=== PATIENT | female | born 1975 | race Caucasian/White ===

== ENCOUNTER → 2020-08-22 17:23 | Outpatient (CLI) | payer OTHER, SELFPAY ==
--- NOTE | ~2020-08-22 | MM_ITS ---
EXAMINATION: MM screening [facility] BI w cash HISTORY: Screening mammogram TECHNIQUE: Craniocaudal and mediolateral oblique 3-D tomosynthesis images were obtained and synthetic 2-D images were generated. CAD analysis was submitted and interpreted. COMPARISON: 03/07/2018, 01/25/2017 BREAST PARENCHYMAL COMPOSITION: The breasts are heterogeneously dense, which may obscure small masses . FINDINGS: There is no evidence of suspicious mass, calcification, or architectural distortion to sugg est malignancy in either breast. There has been no suspicious interval change. IMPRESSION: 1. No mammographic evidence of malignancy. 2. Recommend routine screening mammography in one year. BI-RADS Category 1: Negative Reviewed, dictated and finalized at location A. ECTOR SHELLS
== END ==
PROVIDERS: Visit Provider Family Medicine
DX: Z12.31 Encounter for screening mammogram for malignant neoplasm of breast (principal)
CPT/HCPCS: 77063; 77067

== ENCOUNTER 2021-02-12 10:49 | Emergency (ER) | payer OTHER, SELFPAY ==
--- NOTE | ~2021-02-12 | XR_ITS ---
EXAMINATION: XR foot RT min 3V DATE: 02/12/2021 11:06 INDICATION: Right foot pain. TECHNIQUE: 4 views of right foot were obtained. COMPARISON: None. FINDINGS: There is mild hallux valgus. No fracture. There is mild osteoarthritis of first metatarsoph alangeal joint and some of the interphalangeal joints. There is an enthesophyte at plantar aspect of calcaneal tuberosity. IMPRESSION: 1. Mild hallux valgus. 2. Mild polyarticular osteoarthritis. Reviewed, dictated and finalized at location B.
--- NOTE | 2021-02-12 10:54 | ED.LOWEXIN ---
HPI - Extremity Injury (Lower) General Chief Complaint: Extremity Injury, Lower Stated Complaint: R FOOT PAIN Time Seen by Provider: 02/12/21 10:55 Source: patient and RN notes reviewed Mode of arrival: ambulatory Limitations: no limitations History of Present Illness HPI Narrative: 45-year-old female presents to the [facility] with complaints of lateral and dorsal right foot pain for a couple of weeks. Denies any pain currently. Pain is worse when she stands or walks a lot. When she is having pain she takes Advil or ibuprofen. Not sure of any injury. No direct trauma. No bruising or swelling noted. No wounds noted. Related Data Home Medications Medication Instructions Recorded Confirmed cholecalciferol (vitamin D3) 50 2,000 unit PO DAILY 06/01/19 07/24/20 mcg (2,000 unit) tablet Allergies Allergy/AdvReac Type Severity Reaction Status Date / Time oxycodone Allergy Unknown Nausea and Verified 07/24/20 14:08 Vomiting No Known Allergies Allergy Unverified 07/24/20 14:08 Review of Systems Review of Systems: All systems reviewed & are unremarkable except as noted in HPI and below Constitutional: Constitutional: Reports no additional constitutional complaints Eyes: Eyes: Reports no additional eye complaints Cardiovascular: Cardiovascular: Reports no additional cardiovascular complaints Respiratory: Respiratory: Reports no additional respiratory complaints Musculoskeletal: Musculoskeletal: Reports as per HPI (right lateral and dorsal foot) Integumentary/Breasts: Skin/Breast: Reports system reviewed and no additional complaints, except as docu, Denies pruritus and Denies rash Neurologic: Reports system reviewed and no additional complaints, except as documented, Denies headache(s), Denies focal weakness, Denies numbness and Denies weakness Psychiatric: Psychiatric: Reports no additional psychiatric complaints Allergic/Immunologic: Allergic/Immunologic: Reports no additional allergic/immunologic complaints [facility] Past Medical History Medical History (Updated 02/12/21 @ 11:18 by Liz Caal) Anxiety History of abdominal hernia History of abdominal hernia Hypothyroidism Vitamin D deficiency Family History Family History Mother Hypertension Family history of primary malignant neoplasm of liver Sibling Hypertension Family history of liver disease Father Malignant neoplasm of prostate Other Acute myocardial infarction Diabetes mellitus Social History Social History Smoking status: Former smoker Tobacco type: cigarettes Second hand tobacco smoke exposure: No Smoking end date: 06/28/10 Alcohol intake: never Substance use: never Substance use type: does not use Gender identity (if verbalized by the patient): Female Comments At the time of my signature, I reviewed and agree with the nursing past medical, surgical, social, and family history. There is no relevant family history pertinent to the patient complaint. Exam Const: General: healthy appearing, no acute distress and alert Nutritional Appearance: well nourished and obese Orientation/consciousness: patient oriented x3 Limitations: no limitations HENMT: Head: normal to inspection Neck: Neck: normal visual inspection, no lymphadenopathy and no meningeal signs Chest: Chest palpation & inspection: normal inspection of the chest Resp: Effort & Inspection: normal respiratory effort and no use of accessory muscles Auscultation: clear to auscultation bilaterally, no crackles, no rales, no rhonchi and no wheezes Cardio: Rate: regular rate Rhythm: regular rhythm : General: Yes no CVA tenderness Back/Spine/Pelvis: Back: no CVA tenderness Skin: General skin exam: normal color Rashes: no rashes Wounds: no wounds Neuro: General: patient oriented x3, moves all extremities, no meningeal signs and no focal mot
[2021-02-12 10:57] VITALS: BP 139/92; PULSE 68; RESP 16; TEMP 36.4; O2SAT 98
== END 2021-02-12 11:25 | disposition home or self-care (01) ==
PROVIDERS: Emergency Provider Nurse Practitioner; PCP Family Medicine
DX: M77.31 Calcaneal spur, right foot (principal); Z87.891 Personal history of nicotine dependence; F41.9 Anxiety disorder, unspecified; E03.9 Hypothyroidism, unspecified; E55.9 Vitamin D deficiency, unspecified
CPT/HCPCS: 73630; 99213; G0463

== ENCOUNTER 2021-10-25 17:47 | Emergency (ER) | payer OTHER, SELFPAY ==
--- NOTE | ~2021-10-25 | XR_ITS ---
EXAMINATION: XR chest 2V Exam Date/Time: 10/25/2021 19:40 CDT CLINICAL HISTORY: chest pain, BURNING FROM THROAT TO STOMACH Comparison: None available. RESULT: Lines, tubes, and devices: None. Lungs and pleura: Clear. Cardiomediastinal silhouette: Normal cardiomediastinal silhouette. Other: No acute osseous or upper abdominal finding. IMPRESSION: No acute cardiopulmonary process Reviewed, dictated and finalized at location K.
[2021-10-25 17:52] VITALS: BP 186/96; PULSE 69; RESP 20; TEMP 36.3; O2SAT 100
--- NOTE | 2021-10-25 19:31 | ECG_ITS ---
Measurements Intervals [place] Rate: 64 P: 64 [place]: 144 QRS: 33 QRSD: 72 T: 36 QT: 420 QTc: 433 Interpretive Statements SINUS RHYTHM EARLY PRECORDIAL R/S TRANSITION BORDERLINE ST ABNORMALITY- ANTERAOLAT/INF LEADS BASELINE ARTIFACT- I, II, III, AVR, AVF, V1 BORDERLINE ECG Electronically Signed On 10-26-2021 6:34:46 CDT by Juan José Johansen D.O.
[2021-10-25] MEDS: MAG HYDROX/AL HYDROX/SIMETH 30 ML UDC PO (19:36)
[2021-10-25] MEDS: LIDOCAINE HCL 2% VISC SOLN 15 ML UDC 20 ML PO (19:36)
--- NOTE | 2021-10-25 20:02 | ED.ABDPAIN ---
HPI - Abdominal Pain General Chief Complaint: Abdominal Pain Stated Complaint: pain, heat flashes all over my body Time Seen by Provider: 10/25/21 19:01 Source: patient History of Present Illness HPI narrative: Patient presents with a burning sensation in her chest. Reports it starts at her throat and radiates down to her abdomen. Her symptoms started yesterday she attempted Pepto-Bismol without relief check her symptoms are getting worse so she came to the ER for evaluation. Reports eating and drinking makes her symptoms worse she denies any change with physical activity she denies any shortness of breath or lightheadedness. Reports her symptoms were really bad last night and she was unable to sleep. Denies any nausea vomiting or diarrhea Related Data Home Medications Medication Instructions Recorded Confirmed cholecalciferol (vitamin D3) 50 2,000 unit PO DAILY 06/01/19 09/22/21 mcg (2,000 unit) tablet Allergies Allergy/AdvReac Type Severity Reaction Status Date / Time oxycodone Allergy Unknown Nausea and Verified 10/25/21 17:59 Vomiting Review of Systems Review of Systems: CONSTITUTIONAL: Denies fever, chills, or sweats. EYES: Denies visual changes, redness, or discharge. ENT: Denies rhinorrhea, congestion, sore throat, or otalgia. CARDIOVASCULAR: Denies palpitations, or edema. RESPIRATORY: Denies cough or dyspnea. GASTROINTESTINAL: Denies nausea, vomiting, or diarrhea. GENITOURINARY: Denies dysuria or hematuria. SKIN: Denies rash or itching. MUSCULOSKELETAL: Denies back pain, joint pain, or myalgia. NEUROLOGIC: Denies headache, numbness, dizziness, or weakness. PSYCHIATRIC: Denies anxiety or depression. All systems reviewed & are unremarkable except as noted in HPI and below [facility] Past Medical History Medical History Anxiety History of abdominal hernia History of abdominal hernia Hypothyroidism Vitamin D deficiency Surgical History Surgical History History of hernia repair Family History Family History Mother Hypertension Family history of primary malignant neoplasm of liver Sibling Hypertension Family history of liver disease Father Malignant neoplasm of prostate Other Acute myocardial infarction Diabetes mellitus Social History Social History Years smoked: 20 Smoking status: Former smoker Tobacco type: cigarettes Second hand tobacco smoke exposure: No Smoking end date: 06/28/10 Alcohol intake: never Substance use: never Substance use type: does not use Gender identity (if verbalized by the patient): Female Sexual Orientation (if Verbalized by the Patient): Straight or Heterosexual Exam Narrative: GENERAL: Well-appearing, well-nourished, and in no acute distress. HEAD: Normocephalic, atraumatic. EYES: PERRLA and EOMI. ENT: Nares clear, no rhinorrhea or epistaxis. Mucous membranes moist. NECK: Supple. No masses. No JVD CHEST: Clear to auscultation. No respiratory distress. No wheezes rales or rhonchi HEART: Regular rate and rhythm. No murmur heard. Normal peripheral pulses. ABDOMEN: Soft, nontender, nondistended, normal active bowel sounds. EXTREMITIES: Normal range of motion. No edema. SKIN: Warm, dry, no rash. NEURO: No focal deficits. Alert and oriented x3. PSYCH: Normal mood and affect. Course Reevaluation(s) Reevaluation #1: Patient resting comfortably denies significant change in symptoms results and plan reviewed with patient. Patient is comfortable outpatient plan. Date: 10/25/21 Time: 20:47 Vital Signs Vital signs: Vital Signs Temperature 36.3 C L 10/25/21 17:52 Pulse Rate 69 10/25/21 17:52 Respiratory Rate 20 10/25/21 17:52 Blood Pressure 186/96 H 10/25/21 17:52 Pulse Oximetry 100 10/25/21 17:52
[2021-10-25 20:08] LABS: Basophils Percent Auto 0.2 % (0.2-1.2); Eosinophils Percent Auto 0.2 % (0-4.4); Hematocrit 41.2 % (37.0-47.0); Hemoglobin 13.9 g/dL (12.0-15.0); Immature Granulocyte Absolute 0.03 K/mm3 (0.00-0.031); Immature Granulocyte Percent A 0.3 % (0-0.5); Lymphocytes Absolute Auto 1.52 K/mm3 (0.9-3.2); Lymphocytes Percent Auto 15.5 % (18.3-44.2); Mean Corpuscular HGB Conc 33.7 g/dl (32-36); Mean Corpuscular Hemoglobin 29.8 pg (26-34); Mean Corpuscular Volume 88.4 fl (80-100); Mean Platelet Volume 10.8 fl (7.4-10.4); Monocytes Absolute Auto 0.8 K/mm3 (0.1-0.6); Monocytes Percent Auto 8.2 % (2.6-8.5); Neutrophils Absolute Auto 7.4 K/mm3 (1.3-6.7); Neutrophils Percent Auto 75.6 % (45.5-73.1); Platelet Count Result 253 k/mm3 (150-375); Red Blood Count 4.66 M/mm3 (4.2-5.4); White Blood Count 9.8 K/mm3 (4.5-10.0)
[2021-10-25 20:25] LABS: Alanine Aminotransferase 19 U/L (4-35); Albumin Level 4.4 g/dL (3.5-5.1); Alkaline Phosphatase 68 U/L (38-126); Anion Gap 8 mmol/L (8-16); Aspartate Amino Transferase 23 U/L (14-36); Bilirubin,Total 0.7 mg/dL (0.2-1.3); Blood Urea Nitrogen 6 mg/dL (7-17); Calcium 8.8 mg/dL (8.4-10.2); Carbon Dioxide 27 mmol/L (22-30); Chloride 102 mmol/L (98-107); Estimated Glomerular Filt Rate > 60; Glucose 114 mg/dL (65-110); Lipase 83 U/L (23-300); Potassium 3.5 mmol/L (3.4-5.0); Sodium 137 mmol/L (137-145)
== END 2021-10-25 21:00 | disposition home or self-care (01) ==
PROVIDERS: Emergency Provider Emergency Medicine; PCP Family Medicine
DX: K21.9 Gastro-esophageal reflux disease without esophagitis (principal); E03.9 Hypothyroidism, unspecified; E55.9 Vitamin D deficiency, unspecified; Z87.891 Personal history of nicotine dependence; R94.31 Abnormal electrocardiogram [ECG] [EKG]
CPT/HCPCS: 36415; 71046; 80053; 83690; 85025; 93005; 99283; A9270

== ENCOUNTER → 2021-11-12 14:16 | Outpatient (CLI) | payer OTHER, SELFPAY ==
--- NOTE | ~2021-11-12 | MM_ITS ---
EXAMINATION: MM screening [facility] BI w cash HISTORY: Screening mammogram TECHNIQUE: Craniocaudal and mediolateral oblique 3-D tomosynthesis images were obtained and synthetic 2-D images were generated. CAD analysis was submitted and interpreted. COMPARISON: 08/22/2020, 03/07/2018 BREAST PARENCHYMAL COMPOSITION: There are scattered areas of fibroglandular density. FINDINGS: There is no suspicious mass, calcification, or architectural distortion to suggest malignan cy in either breast. There has been no suspicious interval change. IMPRESSION: 1. No mammographic evidence of malignancy. 2. Recommend routine screening mammography in one year. BI-RADS Category 1: Negative Reviewed, dictated and finalized at location A.
== END ==
PROVIDERS: PCP Family Medicine; Visit Provider Family Medicine
DX: Z12.31 Encounter for screening mammogram for malignant neoplasm of breast (principal)
CPT/HCPCS: 77063; 77067

== ENCOUNTER 2022-09-19 12:18 | Outpatient (CLI) | payer OTHER, SELFPAY ==
[2022-09-19 12:48] LABS: Basophils Percent Auto 0.3 % (0.2-1.2); Eosinophils Absolute Auto 0.1 K/mm3 (0-0.3); Eosinophils Percent Auto 1.6 % (0-4.4); Hematocrit 41.4 % (37.0-47.0); Hemoglobin 14.2 g/dL (12.0-15.0); Immature Granulocyte Absolute 0.02 K/mm3 (0.00-0.031); Immature Granulocyte Percent A 0.3 % (0-0.5); Lymphocytes Absolute Auto 1.39 K/mm3 (0.9-3.2); Lymphocytes Percent Auto 22.9 % (18.3-44.2); Mean Corpuscular HGB Conc 34.3 g/dl (32-36); Mean Corpuscular Hemoglobin 30.7 pg (26-34); Mean Corpuscular Volume 89.4 fl (80-100); Mean Platelet Volume 11.2 fl (7.4-10.4); Monocytes Absolute Auto 0.5 K/mm3 (0.1-0.6); Monocytes Percent Auto 8.2 % (2.6-8.5); Neutrophils Absolute Auto 4.1 K/mm3 (1.3-6.7); Neutrophils Percent Auto 66.7 % (45.5-73.1); Platelet Count Result 220 k/mm3 (150-375); Red Blood Count 4.63 M/mm3 (4.2-5.4); Red Cell Distribution Width 11.7 % (11.5-14.5); White Blood Count 6.1 K/mm3 (4.5-10.0)
[2022-09-19 13:02] LABS: Alanine Aminotransferase 19 U/L (6-35); Alkaline Phosphatase 63 U/L (38-126); Anion Gap 6 mmol/L (8-16); Aspartate Amino Transferase 16 U/L (14-36); Bilirubin,Total 0.9 mg/dL (0.2-1.3); Blood Urea Nitrogen 10 mg/dL (7-17); Calcium 8.8 mg/dL (8.4-10.2); Carbon Dioxide 26 mmol/L (22-30); Chloride 107 mmol/L (98-107); Cholesterol 178 mg/dL (0-200); Estimated Glomerular Filt Rate > 60; Glucose 95 mg/dL (65-110); HDL Direct 31 mg/dL; Sodium 139 mmol/L (137-145); Triglycerides 89 mg/dL (<150)
[2022-09-19 13:03] LABS: Hemoglobin A1C 5.1 % (<5.7)
[2022-09-19 13:14] LABS: LDL Cholesterol Direct 121 mg/dL
[2022-09-19 13:15] LABS: Appearance Urine Clear (Clear); Bilirubin Urine Negative (Negative); Blood Urine Negative (Negative); Color Urine Yellow (Yellow); Glucose Urine UA Negative (Negative); Ketones Urine Negative (Negative); Leukocyte Esterase Ur Negative LEU/UL (NEGATIVE); Nitrate Urine Negative (Negative); Protein Urine Negative (Negative); Specific Grav Ur 1.024 (1.001-1.035); Urobilinogen Urine 0.2 mg/dL (<2.0); pH Urine 5.5 (5.0-9.0)
[2022-09-19 13:23] LABS: Add Urine Microscopic? NO
[2022-09-19 13:31] LABS: Thyroid Stimulating Hormone 0.134 uIU/mL (0.465-4.680)
[2022-09-19 14:21] LABS: Vitamin D 25 Hydroxy 66.8 ng/mL
== END 2022-09-19 12:19 | disposition home or self-care (01) ==
LOC: ANHLAB 12:20
PROVIDERS: PCP Family Medicine; Visit Provider Physician Assistant
DX: Z00.00 Encounter for general adult medical examination without abnormal findings (principal); E78.00 Pure hypercholesterolemia, unspecified; E55.9 Vitamin D deficiency, unspecified; F41.9 Anxiety disorder, unspecified; E03.9 Hypothyroidism, unspecified
CPT/HCPCS: 36415; 80053; 80061; 81003; 82306; 83036; 84443; 85025

== ENCOUNTER 2022-11-09 12:48 | Outpatient (CLI) | payer OTHER, SELFPAY ==
[2022-11-09 13:55] LABS: Thyroid Stimulating Hormone 0.458 uIU/mL (0.465-4.680)
== END 2022-11-09 12:49 | disposition home or self-care (01) ==
PROVIDERS: PCP Family Medicine; Visit Provider Physician Assistant
DX: E03.9 Hypothyroidism, unspecified (principal)
CPT/HCPCS: 36415; 84443

== ENCOUNTER → 2023-01-28 10:36 | Outpatient (CLI) | payer OTHER, SELFPAY ==
--- NOTE | ~2023-01-28 | MM_ITS ---
EXAMINATION: MM screening [facility] BI w cash HISTORY: Screening mammogram TECHNIQUE: Craniocaudal and mediolateral oblique 3-D tomosynthesis images were obtained and synthetic 2-D images were generated. CAD analysis was submitted and interpreted. COMPARISON: November 12, 2021 bilateral screening mammogram; mammograms prior to that date are not availab le from cataracts this time. BREAST PARENCHYMAL COMPOSITION: There are scattered areas of fibroglandular density. FINDINGS: There is no evidence of suspicious mass, calcification, or architectural distortion to sugg est malignancy in either breast. There has been no suspicious interval change. IMPRESSION: 1. No mammographic evidence of malignancy. 2. Recommend routine screening mammography in one year. BI-RADS Category 1: Negative Reviewed, dictated and finalized at location A.
== END ==
PROVIDERS: PCP Family Medicine; Visit Provider Physician Assistant
DX: Z12.31 Encounter for screening mammogram for malignant neoplasm of breast (principal)
CPT/HCPCS: 77063; 77067

== ENCOUNTER 2024-08-03 09:28 | Outpatient (CLI) | payer OTHER, SELFPAY ==
--- NOTE | ~2024-08-03 | MM_ITS ---
EXAMINATION: MM screening [facility] BI w cash HISTORY: Screening TECHNIQUE: Craniocaudal and mediolateral oblique 3-D tomosynthesis images were obtained and synthetic 2-D images were generated. CAD analysis was submitted and interpreted. COMPARISON: Comparison to multiple prior studies sequentially, with oldest reviewed study dated 01/25. BREAST PARENCHYMAL COMPOSITION: Not dense: There are scattered areas of fibroglandular density. FINDINGS: There is no evidence of suspicious mass, calcification, or architectural distortion to sugg est malignancy in either breast. There has been no suspicious interval change. IMPRESSION: 1. No mammographic evidence of malignancy. 2. Recommend routine screening mammography in one year. BI-RADS Category 1: Negative Reviewed, dictated and finalized at location B. [employer] STUDIES DIRECTOR
--- OUTSIDE RECORDS SUMMARY | 2024-08-03 09:40 | XMS_ITS | Referral Summary ---
Author Organization [facility] Address [address] [place] [address] Care Team Providers Care A&P Mechanic Name Role Phone Unknown, Provider Primary Care Provider Unavaila ble Source Comments [facility],non-owned Affiliates and Associated Physician Practices is amultiple site organization consisting of ambulatory clinics and hospital sitesin [place], [place], [place] and [place]. This disclosure is being madepursuant to the Care Everywhere program and may not contain all information available regarding this patient. Last updated 18.[facility] [employer] Allergies No known active allergies Immunizations Name Administration Dates Next Due FLU VACCINE QUAD IIV4 PF ID 05/11/2016 INFLUENZA VACCINE, QUADR. (F LUZONE; FLULAVAL; FLUARIX; AFLURIA QUADRIVALENT; 6MO+), 0.5 ML (IIV4) 04/27/2017 TDAP (7yrs+) 04/27/2017 Social History Tobacco Use Types Packs/Day Years Used Date Smoking Tobacco: Never Assessed Sex and Gender Information Value Date Recorded Sex Assigned at Not on file Gender Identity Not on file Sexual Orientation Not on file Plan of Treatment Not on file Care Teams A&P Mechanic Relationship Specialty Start Date End Date Unknown, Provider PCP - General 05/11/16
--- OUTSIDE RECORDS SUMMARY | 2024-08-03 09:40 | XMS_ITS | Clinical Summary ---
Author Organization [facility] [employer] Address [facility] [place] [address] Care Team Providers Care Developmental Education Instructor Name Role Phone Unknown, Provider Primary Care Provider Unavaila ble Source Comments [facility] [employer],non-owned Affiliates and Associated Physician Practices is amultiple site organization consisting of ambulatory clinics and hospital sitesin [place], [place], [place] and [place]. This disclosure is being madepursuant to the Care Everywhere program and may not contain all information available regarding this patient. Last updated 18.[facility] [employer] Allergies No known active allergies Immunizations Name [...] Orientation Not on file Plan of Treatment Health Maintenance Due Date Last Done Comments COLOGUARD (AGES 45-75) - COL ON CA SCREENING 1976 COLON MONITORING 1976 COLONOSCOPY - COLON CA SCREENING 1976 CT COLONOGRAPHY - COLON CA SCREENING 1976 Colorectal Cancer Screening 1976 FIT - COLON CA SCREENING 1976 FLEX SIG - COLON CA SCREENING 1976 LIPID TESTING 1976 MAMMOGRAM 1976 PAP SMEAR 1976 HIV SCREENING 1991 HEPATITIS C SCREENING 05/11/1994 HEPATITIS B VACCINE (1 of 3 - 19+ 3-dose series) 1995 COVID-19 VACCINE (2023-2 5 season) 2024 INFLUENZA VACCINE (#1) 2024 7, 05/11/2016 DEPRESSION SCREENING 06/28/2024 ZOSTER VACCINE (1 of 2) 2026 DTAP/TDAP/TD VACCINES (2 - T d or Tdap) 04/27/2027 04/27/2017 HIB VACCINE Aged Out No longer eligi ble based on patient's age to complete this topic HPV VACCINE Aged Out No longer eligi ble based on patient's age to complete this topic MENINGOCOCCAL (Group B) VACCINE Aged Out No longer eligible b ased on patient's age to complete this topic MENINGOCOCCAL VACCINE Aged Out No [place] eligible based on patient's age to complete this topic PNEUMOCOCCAL VACCINE Aged Out No long er eligible based on patient's age to complete this topic Care Teams Developmental Education Instructor Relationship Specialty Start Date End Date Unknown, Provider PCP - General 05/11/16
--- OUTSIDE RECORDS SUMMARY | 2024-08-03 09:40 | XMS_ITS | Patient Health Summary ---
Author Organization [facility] Address [address] [place] [address] Care Team Providers Care Forensic Accountant Name Role Phone Unknown, Provider Primary Care Provider Unavaila ble [facility],non-owned Affiliates and Associated Physician Practices is amultiple site organization consisting of ambulatory clinics and hospital sitesin [place], [place], [place] and [place]. This disclosure is being madepursuant to the Care Everywhere program and may not contain all information available regarding this patient. Last updated 18.[facility] Allergies No known active allergies Immunizations * FLU VACCINE QUAD IIV4 PF ID(Given 05/11/2016) * INFLUENZA VACCINE, QUADR. (FLUZONE; FLULAVAL; FLUARIX; AFLURIA QUADRIVALENT; 6MO+), 0.5 ML (IIV4)(Given 04/27/2017) * TDAP (7yrs+)(Given 04/27/2017) Social History Tobacco Use Types Packs/Day Years Used Date Smoking Tobacco: Never Assessed Sex and Gender Information Value Date Recorded Sex Assigned at Not on file Gender Identity Not on file Sexual Orientation Not on file Care Teams Forensic Accountant Relationship Specialty Start Date End Date Unknown, Provider PCP - General 05/11/16
== END 2024-08-03 09:29 | disposition home or self-care (01) ==
LOC: ANHIMG 09:29
PROVIDERS: PCP Family Medicine; Visit Provider Physician Assistant Medical
DX: Z12.31 Encounter for screening mammogram for malignant neoplasm of breast (principal)
CPT/HCPCS: 77063; 77067

== ENCOUNTER 2024-09-11 00:58 | Emergency (ER) | payer OTHER, SELFPAY ==
--- OUTSIDE RECORDS SUMMARY | 2024-09-11 01:00 | XMS_ITS | Patient Health Summary ---
Author Organization [facility] Address [address] [place] [address] Care Team Providers Care Deck Mate Name Role Phone Unknown, Provider Primary Care Provider Unavaila ble Note from [facility],non-owned Affiliates and Associated Physician Practices is amultiple site organization consisting of ambulatory clinics and hospital sitesin [place], [place], [place] and [place]. This disclosure is being madepursuant to the Care Everywhere program and may not contain all information available regarding this patient. Last updated 18.[facility] Allergies No known active allergies Immunizations [...] Sexual Orientation Not on file Care Teams Deck Mate Relationship Specialty Start Date End Date Unknown, Provider PCP - General 05/11/16
--- OUTSIDE RECORDS SUMMARY | 2024-09-11 01:00 | XMS_ITS | Clinical Summary ---
Author Organization [facility] [employer] Address [facility] [facility] [place] [address] Care Team Providers Care Dulser Name Role Phone Unknown, Provider Primary Care Provider Unavaila ble Source Comments [facility] [employer],non-owned Affiliates and Associated Physician Practices is amultiple site organization consisting of ambulatory clinics and hospital sitesin [place], [place], [place] and [place]. This disclosure is being madepursuant to the Care Everywhere program and may not contain all information available regarding this patient. Last updated 18.[facility] [employer] Allergies No known active allergies Immunizations Name [...] complete this topic MENINGOCOCCAL (Group B) VACCINE SHARED DECISION-MAKING Aged Out No longer eligible based on patient's age to complete this topic MENINGOCOCCAL GROUPS A/C/Y/W VACCINE Aged Out No longer eligible b ased on patient's age to complete this topic PNEUMOCOCCAL VACCINE Aged Out No long er eligible based on patient's age to complete this topic Care Teams Dulser Relationship Specialty Start Date End Date Unknown, Provider PCP - General 05/11/16
--- OUTSIDE RECORDS SUMMARY | 2024-09-11 01:00 | XMS_ITS | Referral Summary ---
Author Organization [facility] Address [address] [address] Care Team Providers Care Gastroenterology Manager Name Role Phone Unknown, Provider Primary Care Provider Unavaila ble Source Comments [facility],non-owned Affiliates and Associated Physician Practices is amultiple site organization consisting of ambulatory clinics and hospital sitesin [place], [place], [place] and [place]. This disclosure is being madepursuant to the Care Everywhere program and may not contain all information available regarding this patient. Last updated 18.[facility] [employer] Allergies No known active allergies Immunizations Name [...] of Treatment Not on file Care Teams Gastroenterology Manager Relationship Specialty Start Date End Date Unknown, Provider PCP - General 05/11/16
[2024-09-11 01:11] VITALS: BP 162/93; PULSE 80; RESP 19; TEMP 36.2; O2SAT 97
--- OUTSIDE RECORDS SUMMARY | 2024-09-11 02:09 | XMS_ITS | Referral Summary ---
Author Organization [facility] Address [address] [place] [address] Care Team Providers Care Cleaner Wall Name Role Phone Unknown, Provider Primary Care Provider Unavaila ble Source Comments [facility],non-owned Affiliates and Associated Physician Practices is amultiple site organization consisting of ambulatory clinics and hospital sitesin [place], [place], [place] and [place]. This disclosure is being madepursuant to the Care Everywhere program and may not contain all information available regarding this patient. Last updated 18.[facility] [employer] Allergies No known active allergies Immunizations Name [...] of Treatment Not on file Care Teams Cleaner Wall Relationship Specialty Start Date End Date Unknown, Provider PCP - General 05/11/16
--- OUTSIDE RECORDS SUMMARY | 2024-09-11 02:09 | XMS_ITS | Clinical Summary ---
Author Organization [facility] [employer] Address [facility] [place] [address] Care Team Providers Care Dentist Private Practice Name Role Phone Unknown, Provider Primary Care Provider Unavaila ble Source Comments [facility] [employer],non-owned Affiliates and Associated Physician Practices is amultiple site organization consisting of ambulatory clinics and hospital sitesin [place], [place], [place] and [place]. This disclosure is being madepursuant to the Care Everywhere program and may not contain all information available regarding this patient. Last updated 18.[facility] [employer] Allergies No known active allergies Immunizations Name [...] age to complete this topic Care Teams Dentist Private Practice Relationship Specialty Start Date End Date Unknown, Provider PCP - General 05/11/16
--- OUTSIDE RECORDS SUMMARY | 2024-09-11 02:09 | XMS_ITS | Patient Health Summary ---
Author Organization [facility] Address [address] [facility] [address] [place] [address] Care Team Providers Care Checkering Machine Adjuster Name Role Phone Unknown, Provider Primary Care Provider Unavaila ble Note from [facility],non-owned Affiliates and Associated Physician Practices is amultiple site organization consisting of ambulatory clinics and hospital sitesin [place], [place], [place] and [place]. This disclosure is being madepursuant to the Care Everywhere program and may not contain all information available regarding this patient. Last updated 18.[facility] Allergies No known active allergies Immunizations * [...] Sexual Orientation Not on file Care Teams Checkering Machine Adjuster Relationship Specialty Start Date End Date Unknown, Provider PCP - General 05/11/16
[2024-09-11 02:14] LABS: Influenza A QL RT-PCR Positive (Negative); Influenza B QL RT-PCR Negative (Negative); RSV RNA, RT-PCR Negative (Negative); SARS-CoV-2 RNA PCR Negative (Negative)
--- NOTE | 2024-09-11 02:22 | ED_ITS ---
HPI - URI/Sore Throat General Chief Complaint: Upper Respiratory Infection Stated Complaint: cough, body aches, chills, cant sleep Time Seen by Provider: 09/11/24 02:02 Source: patient and family ( -also presents as a patient) Mode of arrival: ambulatory Limitations: no limitations History of Present Illness HPI Narrative: Patient presents with report of a cough that had been productive but now nonproductive. She is also having myalgias and chills of 1 week's duration and reports that her symptoms are making it hard for her to sleep. She feels like she has brain fog. She reports a sore throat. She has been trialing Motrin, DayQuil, NyQuil, and Domi-S[place]. Her with whom she lives also has similar symptoms and presents as a patient. Denies any fevers. Denies any underlying respiratory conditions. Nonsmoker. Related Data Allergies Allergy/AdvReac Type Severity Reaction Status Date / Time codeine Allergy Unknown Unknown Verified 09/11/24 01:14 oxycodone Allergy Unknown Nausea and Verified 09/11/24 01:14 Vomiting amlodipine AdvReac Intermediate Cramping Verified 09/11/24 01:14 of the Muscles PMFSH Past Medical History Medical History Non-cardiac chest pain Colon cancer screening Obesity (BMI 30-39.9) History of abdominal hernia Anxiety Hypothyroidism Vitamin D deficiency Surgical History Surgical History History of hernia repair Family History Family History Mother Hypertension Family history of primary malignant neoplasm of liver Sibling Hypertension Family history of liver disease Father Malignant neoplasm of prostate Other Acute myocardial infarction Diabetes mellitus Social History Social History Smoking packs per day: 0.5 Smoking cigarettes per day: 10.0 Years smoked: 20 Smoking pack-years: 10.00 Smoking status: Former smoker Tobacco type: cigarettes Second hand tobacco smoke exposure: No Smoking end date: 06/28/10 Alcohol intake: never Substance use: never Substance use type: does not use Living arrangements: with family Occupation/Education: occupation Gender identity (if verbalized by the patient): Female Sexual Orientation (if Verbalized by the Patient): Straight or Heterosexual Spiritual care concerns: No Exam Narrative: GENERAL: Well-appearing, well-nourished, and in no acute distress. HEAD: Normocephalic, atraumatic. EYES: Non injected, non icteric ENT: Nares clear, no rhinorrhea or epistaxis. NECK: Supple. CHEST: Speaking in full sentences. No respiratory distress. HEART: Regular rate and rhythm. . ABDOMEN: Obese but Soft, nondistended. EXTREMITIES: Normal range of motion. SKIN: Warm, dry, no rash. NEURO: No focal deficits. Alert and oriented x3. PSYCH: Normal mood and affect. Course Vital Signs Vital signs: Vital Signs Temperature 97.1 F L 09/11/24 01:11 Pulse Rate 80 09/11/24 01:11 Respiratory Rate 19 09/11/24 01:11 Blood Pressure 162/93 H 09/11/24 01:11 Pulse Oximetry 97 09/11/24 01:11 Oxygen Delivery Room Air 09/11/24 01:11 Temperature 97.1 F L 09/11/24 01:11 Pulse Rate 80 09/11/24 01:11 Respiratory Rate 19 09/11/24 01:11 Blood Pressure 162/93 H 09/11/24 01:11 Pulse Oximetry 97 09/11/24 02:33 Oxygen Delivery Room Air 09/11/24 02:33 MDM - URI/Sore Throat MDM Narrative Medical decision making narrative: Patient presents with cough, myalgias, chills of 1 week's duration. She also has a sore throat. Her symptoms of antonio hard for to sleep. Has been trying v arious [id number] medications without relief. Her with whom she lives also has similar symptoms and presents as a patient. In the emergency department she is afebrile with vital signs notable for hypertension. She tests positive for influenza A. Patient given a combination of multiple medications for symptom relief while in the emergency department including a 1 time dose of dexamethasone given her sore throat and this has been shown to improve time to symptom resolution. Discussed the possibility of but through shared decision-making will defer prescribing Tamiflu specially given otherwise low risk and symptoms have been going on for greater than 72 hours. Discussed the importance of rest, maintaining hydration, and other supportive care measures. Discharged home with prescriptions for multiple medications for symptom management. Verifies understanding is in agreement. Stable for discharge. Lab Data Labs: Lab Results 09/11/24 Range/Units 01:31 Influenza A (RT-PCR) Positive A (Negative) Influenza B (RT-PCR) Negative (Negative) RSV (RT-PCR) Negative (Negative) SARS-CoV-2 RNA (RT-PCR) Negative (Negative) Discharge Plan Discharge Clinical Impression: Influenza A Patient Disposition: Home, Self-Care Condition: Stable Instructions: Antibiotic Form, Influenza (DC) Additional Instructions: The main stays of treatment for this viral process are to Rest and maintain your hydration by drinking plenty of fluids. Acetaminophen/Tylenol (maximum 4000 mg per day) is safe to take with NSAIDs (ibuprofen/Motrin) for pain relief. You can also use the cough medicine lozenges prescribed. Follow-up with primary care physician. Return to the emergency department with any new or worsening symptoms. Patient Language: Nicaraguan Prescriptions: New benzonatate 100 mg capsule 100 mg PO BID PRN (Reason: cough) Qty: 20 0RF ibuprofen 600 mg tablet 600 mg PO TID PRN (Reason: pain) Qty: 20 0RF acetaminophen 500 mg capsule 1,000 mg PO Q6H PRN (Reason: pain) Qty: 20 0RF Cepacol Sore Throat-Cough 5-7.5 mg lozenge 1 arabella PO Q4H PRN (Reason: cough) Qty: 16 0RF No Action cholecalciferol (vitamin D3) 50 mcg (2,000 unit) tablet 2,000 unit PO DAILY Qty: 90 2RF omeprazole 40 mg capsule,delayed release(DR/EC) 40 mg PO DAILY Qty: 90 1RF lisinopril 10 mg tablet 10 mg PO DAILY Qty: 90 2RF levothyroxine 150 mcg tablet 150 mcg PO DAILY Qty: 90 1RF albuterol sulfate 90 mcg/actuation HFA aerosol inhaler 1 puff inhalation Q4-6H PRN (Reason: shortness of breath or wheezing) Qty: 8.5 0RF Follow-up/Referrals: Oziel Vazquez MD [Primary Care Provider] - Stand Alone Forms: Work/School Release IP Time of Disposition: 02:41
[2024-09-11 02:33] VITALS: O2SAT 97
[2024-09-11] MEDS: ACETAMINOPHEN 500 MG TABLET 1000 MG PO (03:06)
[2024-09-11] MEDS: BENZONATATE 100 MG CAPSULE PO (03:06)
[2024-09-11] MEDS: BENZOCAINE/MENTHOL (*BKC) 18 EA LOZENGE 1 LOZENGE PO (03:07)
[2024-09-11] MEDS: KETOROLAC 30 MG/ML VIAL (*BKC) 15 MG IM (03:07)
[2024-09-11] MEDS: guaiFENesin/DEXTROMETHORPHAN 10 ML UDC PO (03:08)
[2024-09-11] MEDS: dexAMETHasone 2 MG TABLET 10 MG PO (03:08)
== END 2024-09-11 03:17 | disposition home or self-care (01) ==
PROVIDERS: Emergency Provider Student in an Organized Health Care Education/Training Program; PCP Family Medicine
DX: J10.1 Influenza due to other identified influenza virus with other respiratory manifestations (principal); E03.9 Hypothyroidism, unspecified; E55.9 Vitamin D deficiency, unspecified; F41.9 Anxiety disorder, unspecified; Z87.891 Personal history of nicotine dependence; Z20.822 Contact with and (suspected) exposure to COVID-19
CPT/HCPCS: 87637; 96372; 99283; A9270; J1885; J8540

== ENCOUNTER 2024-09-15 02:40 | Emergency (ER) | payer OTHER, SELFPAY ==
--- NOTE | ~2024-09-15 | XR_ITS ---
Clinical Indication: Shortness of breath PA and lateral views of the chest: Comparison: 10/25/2021 Findings: Stable probable left upper lobe granuloma. The lungs are otherwise clear, without evidence of focal consolidation or pleural effusion. Cardiomediastinal silhouette is within normal limits. Sincere angel and soft tissues are unremarkable. Impression: No acute abnormality. Reviewed, dictated and finalized at location . Impression: No acute abnormality.
[2024-09-15 02:40] VITALS: BP 174/96; PULSE 64; RESP 17; TEMP 36.2; O2SAT 97
--- OUTSIDE RECORDS SUMMARY | 2024-09-15 05:20 | XMS_ITS | Clinical Summary ---
Author Organization [facility] Address [facility] [facility] [place] [address] Care Team Providers Care Child Care Cook Name Role Phone Unknown, Provider Primary Care Provider Unavaila ble Source Comments [facility],non-owned Affiliates and Associated Physician Practices is amultiple site organization consisting of ambulatory clinics and hospital sitesin [place], [place], [place] and [place]. This disclosure is being madepursuant to the Care Everywhere program and may not contain all information available regarding this patient. Last updated 18.[facility] Allergies No known active allergies Immunizations Name [...] age to complete this topic Care Teams Child Care Cook Relationship Specialty Start Date End Date Unknown, Provider PCP - General 05/11/16
[2024-09-15 06:33] VITALS: BP 148/82; PULSE 56; RESP 15; O2SAT 94
[2024-09-15 07:26] LABS: Basophils Percent Auto 0.3 % (0.2-1.2); Eosinophils Absolute Auto 0.1 K/mm3 (0-0.3); Eosinophils Percent Auto 1.3 % (0-4.4); Hematocrit 40.7 % (37.0-47.0); Immature Granulocyte Absolute 0.04 K/mm3 (0.00-0.031); Immature Granulocyte Percent A 0.4 % (0-0.5); Lymphocytes Absolute Auto 1.46 K/mm3 (0.9-3.2); Lymphocytes Percent Auto 15.8 % (18.3-44.2); Mean Corpuscular HGB Conc 34.4 g/dl (32-36); Mean Corpuscular Hemoglobin 29.8 pg (26-34); Mean Corpuscular Volume 86.6 fl (80-100); Mean Platelet Volume 10.1 fl (7.4-10.4); Monocytes Absolute Auto 1.1 K/mm3 (0.1-0.6); Monocytes Percent Auto 11.6 % (2.6-8.5); Neutrophils Absolute Auto 6.5 K/mm3 (1.3-6.7); Neutrophils Percent Auto 70.6 % (45.5-73.1); Platelet Count Result 317 k/mm3 (150-375); Red Cell Distribution Width 12.7 % (11.5-14.5); White Blood Count 9.3 K/mm3 (4.5-10.0)
[2024-09-15 07:36] LABS: Alanine Aminotransferase 72 U/L (6-35); Albumin Level 3.7 g/dL (3.5-5.1); Alkaline Phosphatase 61 U/L (38-126); Anion Gap 8 mmol/L (4-12); Aspartate Amino Transferase 46 U/L (14-36); Bilirubin,Total 0.4 mg/dL (0.2-1.3); Blood Urea Nitrogen 9 mg/dL (7-17); Calcium 8.4 mg/dL (8.4-10.2); Carbon Dioxide 27 mmol/L (22-30); Chloride 100 mmol/L (98-107); Estimated CRCL calculation 153 ml/min; Estimated Glomerular Filt Rate > 60; Glucose 99 mg/dL (65-110); Sodium 135 mmol/L (137-145)
--- OUTSIDE RECORDS SUMMARY | 2024-09-15 07:52 | XMS_ITS | Clinical Summary ---
Author Organization [facility] Address [facility] [facility] [place] [address] Care Team Providers Care Jewelry Model Maker Name Role Phone Unknown, Provider Primary Care Provider Unavaila ble Source Comments [facility],non-owned Affiliates and Associated Physician Practices is amultiple site organization consisting of ambulatory clinics and hospital sitesin [place], [place], [place] and [place]. This disclosure is being madepursuant to the Care Everywhere program and may not contain all information available regarding this patient. Last updated 18.[facility] Allergies No known active allergies Immunizations Name [...] age to complete this topic Care Teams Jewelry Model Maker Relationship Specialty Start Date End Date Unknown, Provider PCP - General 05/11/16
--- NOTE | 2024-09-15 07:57 | ED_ITS ---
HPI - General Adult General Chief complaint: Upper Respiratory Infection Stated complaint: Unkown Time Seen by Provider: 09/15/24 07:03 Source: patient Mode of arrival: ambulatory Limitations: no limitations History of Present Illness HPI narrative: 49-year-old with a history anxiety presents to the ER with a complaint cough, congestion, burning sensation in her upper chest and arms. Patient states that she was diagnosed with influenza a week ago. She states that she is still not feeling well. She denies any fever no history of vomiting pain the Related Data Allergies Allergy/AdvReac Type Severity Reaction Status Date / Time codeine Allergy Unknown Unknown Verified 09/15/24 05:25 oxycodone Allergy Unknown Nausea and Verified 09/15/24 05:25 Vomiting amlodipine AdvReac Intermediate Cramping Verified 09/15/24 05:25 of the Muscles Review of Systems 2 Review of Systems: All systems reviewed & are unremarkable except as noted in HPI and below Constitutional: Constitutional: Reports no additional constitutional complaints Eyes: Eyes: Reports no additional eye complaints ENT: Reports as per HPI Cardiovascular: Cardiovascular: Reports no additional cardiovascular complaints Respiratory: Respiratory: Reports as per HPI Gastrointestinal: Gastrointestinal: Reports no additional gastrointestinal complaints Musculoskeletal: Musculoskeletal: Reports no additional musculoskeletal complaints PMFSH Past Medical History Medical History Non-cardiac chest pain Colon cancer screening Obesity (BMI 30-39.9) History of abdominal hernia Anxiety Hypothyroidism Vitamin D deficiency Surgical History Surgical History History of hernia repair Family History Family History Mother Hypertension Family history of primary malignant neoplasm of liver Sibling Hypertension Family history of liver disease Father Malignant neoplasm of prostate Other Acute myocardial infarction Diabetes mellitus Social History Social History Smoking packs per day: 0.5 Smoking cigarettes per day: 10.0 Years smoked: 20 Smoking pack-years: 10.00 Smoking status: Former smoker Tobacco type: cigarettes Second hand tobacco smoke exposure: No Smoking end date: 06/28/10 Alcohol intake: never Substance use: never Substance use type: does not use Living arrangements: with family Occupation/Education: occupation Gender identity (if verbalized by the patient): Female Sexual Orientation (if Verbalized by the Patient): Straight or Heterosexual Spiritual care concerns: No Exam 2 Narrative: GENERAL: Well-appearing, well-nourished, and in no acute distress. HEAD: Normocephalic, atraumatic. EYES: PERRLA and EOMI. ENT: Nares clear, Mucous membranes moist. NECK: Supple. CHEST: Clear to auscultation. No respiratory distress. HEART: Regular rate and rhythm. No murmur heard. Normal peripheral pulses. ABDOMEN: Soft, nontender, nondistended, normal active bowel sounds. EXTREMITIES: Normal range of motion. No edema. SKIN: Warm, dry, no rash. NEURO: No focal deficits. Alert and oriented x3. PSYCH: Normal mood and affect. Course Course Emergency Course: Patient comfortably resting in no distress with a SpO2 96-97% on room air. Informed her about her lab work, chest x-ray findings. Advised to drink more fluids take Tylenol ibuprofen for Vital Signs Vital signs: Vital Signs Temperature 36.2 C L 09/15/24 02:40 Pulse Rate 64 09/15/24 02:40 Respiratory Rate 17 09/15/24 02:40 Blood Pressure 174/96 H 09/15/24 02:40 Pulse Oximetry 97 09/15/24 02:40 Oxygen Delivery Room Air 09/15/24 02:40 Temperature 36.2 C L 09/15/24 02:40 Pulse Rate 56 L 09/15/24 06:33 Respiratory Rate 15 09/15/24 06:33 Blood Pressure 148/82 H 09/15/24 06:33 Pulse Oximetry 94 09/15/24 06:33 Oxygen Delivery Room Air 09/15/24 02:40 Medical Decision Making Medical Records Medical records reviewed: Yes I reviewed the external patient's medical records. Vital Signs Vital Signs: Vital Signs Temperature 36.2 C L 09/15/24 02:40 Pulse Rate 64 09/15/24 02:40 Respiratory Rate 17 09/15/24 02:40 Blood Pressure 174/96 H 09/15/24 02:40 Pulse Oximetry 97 09/15/24 02:40 Oxygen Delivery Room Air 09/15/24 02:40 Temperature 36.2 C L 09/15/24 02:40 Pulse Rate 56 L 09/15/24 06:33 Respiratory Rate 15 09/15/24 06:33 Blood Pressure 148/82 H 09/15/24 06:33 Pulse Oximetry 94 09/15/24 06:33 Oxygen Delivery Room Air 09/15/24 02:40 Lab Data Lab results reviewed: Yes I reviewed the patient's lab results. 09/15/24 07:20 09/15/24 07:20 Labs: Lab Results 09/15/24 Range/Units 07:20 WBC 9.3 (4.5-10.0) K/mm3 RBC 4.70 (4.2-5.4) M/mm3 Hgb 14.0 (12.0-15.0) g/dL Hct 40.7 (37.0-47.0) % MCV 86.6 (80-100) fl MCH 29.8 (26-34) pg MCHC 34.4 (32-36) g/dl RDW 12.7 (11.5-14.5) % Plt Count 317 (150-375) k/mm3 MPV 10.1 (7.4-10.4) fl Immature Gran % (Auto) 0.4 (0-0.5) % Neut % (Auto) 70.6 (45.5-73.1) % Lymph % (Auto) 15.8 L (18.3-44.2) % Bleckley % (Auto) 11.6 H (2.6-8.5) % Eos % (Auto) 1.3 (0-4.4) % Baso % (Auto) 0.3 (0.2-1.2) % Lymph # (Auto) 1.46 (0.9-3.2) K/mm3 Bleckley # (Auto) 1.1 H (0.1-0.6) K/mm3 Eos # (Auto) 0.1 (0-0.3) K/mm3 Baso # (Auto) 0.0 (0.0-0.1) K/mm3 Abs Immat Gran (auto) 0.04 H (0.00-0.031) K/mm3 Absolute Neuts (auto) 6.5 (1.3-6.7) K/mm3 Absolute Nucleated RBC 0.000 (0.0-0.012) K/mm3 Nucleated RBC % 0.0 (0.0-0.2) % Sodium 135 L (137-145) mmol/L Potassium 3.0 L (3.4-5.0) mmol/L Chloride 100 (98-107) mmol/L Carbon Dioxide 27 (22-30) mmol/L Anion Gap 8 (4-12) mmol/L BUN 9 (7-17) mg/dL Creatinine 0.54 L (0.7-1.0) mg/dL Estim Creat Clear Calc 153 ml/min Estimated GFR > 60 (59 - ) Glucose 99 (65-110) mg/dL Calcium 8.4 (8.4-10.2) mg/dL Total Bilirubin 0.4 (0.2-1.3) mg/dL AST 46 H (14-36) U/L ALT 72 H (6-35) U/L Alkaline Phosphatase 61 (38-126) U/L Total Protein 6.0 L (6.3-8.2) g/dL Albumin 3.7 (3.5-5.1) g/dL Imaging Data Radiologist's impression: ITS Impressions Chest X-Ray 09/15/24 07:46 Impression: No acute abnormality. Discharge Plan Discharge Clinical Impression: Post viral syndrome, Anxiety Patient Disposition: Home, Self-Care Condition: Stable Instructions: Viral Syndrome (ED) Additional Instructions: Continue home medication, take Tylenol or ibuprofen for body aches fever, rest, follow-up with your primary doctor Patient Language: Greek Prescriptions: No Action benzonatate 100 mg capsule 100 mg PO BID PRN (Reason: cough) Qty: 20 0RF ibuprofen 600 mg tablet 600 mg PO TID PRN (Reason: pain) Qty: 20 0RF acetaminophen 500 mg capsule 1,000 mg PO Q6H PRN (Reason: pain) Qty: 20 0RF Cepacol Sore Throat-Cough 5-7.5 mg lozenge 1 arabella PO Q4H PRN (Reason: cough) Qty: 16 0RF cholecalciferol (vitamin D3) 50 mcg (2,000 unit) tablet 2,000 unit PO DAILY Qty: 90 2RF omeprazole 40 mg capsule,delayed release(DR/EC) 40 mg PO DAILY Qty: 90 1RF lisinopril 10 mg tablet 10 mg PO DAILY Qty: 90 2RF levothyroxine 150 mcg tablet 150 mcg PO DAILY Qty: 90 1RF albuterol sulfate 90 mcg/actuation HFA aerosol inhaler 1 puff inhalation Q4-6H PRN (Reason: shortness of breath or wheezing) Qty: 8.5 0RF Follow-up/Referrals: Oziel Vazquez MD [Primary Care Provider] - Time of Disposition: 08:01
[2024-09-15 08:27] VITALS: BP 151/76; PULSE 62; RESP 17; TEMP 36.6; O2SAT 95
== END 2024-09-15 08:33 | disposition home or self-care (01) ==
PROVIDERS: Emergency Provider Family Medicine; PCP Family Medicine
DX: G93.39 Other post infection and related fatigue syndromes (principal); F41.9 Anxiety disorder, unspecified; E66.9 Obesity, unspecified; Z68.38 Body mass index [BMI] 38.0-38.9, adult; E03.9 Hypothyroidism, unspecified; E55.9 Vitamin D deficiency, unspecified; Z87.891 Personal history of nicotine dependence; Z79.899 Other long term (current) drug therapy
CPT/HCPCS: 36415; 71046; 80053; 85025; 99283